=== PATIENT | female | born 1970 | race Caucasian/White ===

== ENCOUNTER → 2017-12-13 | Day surgery (SDC) | payer BC ==
[2017-12-08 09:11] LABS: BASOPHILS # (AUTO) 0.1 (0.0-0.1); BASOPHILS % 1.1 % (0.0-1.0); EOSINOPHILS # (AUTO) 0.3 (0.0-0.4); EOSINOPHILS % 5.2 % (0.0-6.0); HEMATOCRIT 39.9 % (34.2-44.1); HEMOGLOBIN 12.8 g/dL (12.0-16.0); LYMPHOCYTES % 37.2 % (18.0-39.1); MEAN CORPUSCULAR HEMOGLOBIN 30.8 pg (28-32); MEAN CORPUSCULAR HGB CONC 32.1 g/dL (31-35); MEAN CORPUSCULAR VOLUME 95.9 fL (81-99); MONOCYTES # (AUTO) 0.8 (0.2-0.8); NEUTROPHILS # (AUTO) 2.3 (2.1-6.9); NEUTROPHILS % 42.3 % (38.7-80.0); PLATELET COUNT 229 x10e3/uL (140-360); RED BLOOD COUNT 4.16 x10e6/uL (3.6-5.1); RED CELL DISTRIBUTION WIDTH 14.9 % (11.7-14.4)
[2017-12-08 09:15] LABS: INR 0.86; PROTHROMBIN TIME 12.1 seconds (11.9-14.5)
[2017-12-08 09:16] LABS: PARTIAL THROMBOPLASTIN TIME 27.7 seconds (23.8-35.5)
[2017-12-08 09:18] LABS: ALANINE AMINOTRANSFERASE 37 IU/L (0-55); ALBUMIN 4.4 g/dL (3.5-5.0); ALBUMIN/GLOBULIN RATIO 1.1 (0.8-2.0); ALKALINE PHOSPHATASE 59 IU/L (40-150); ANION GAP 15.7 mmol/L (8-16); BLOOD UREA NITROGEN 15 mg/dL (7-26); BUN/CREATININE RATIO 19 (6-25); CALCIUM 10.1 mg/dL (8.4-10.2); CARBON DIOXIDE 25 mmol/L (22-29); CHLORIDE 104 mmol/L (98-107); CREATININE, SERUM 0.78 mg/dL (0.57-1.11); EST GLOMERULAR FILTRATION RATE > 60 ML/MIN (60-); GLUCOSE 91 mg/dL (74-118); POTASSIUM 3.7 mmol/L (3.5-5.1); SODIUM 141 mmol/L (136-145)
[~2017-12-13] MED LIST: BACITRACIN 50,000 UNIT VIAL ONE; BUPIVACAINE 0.25% 30ML SDV INJ ONE; CEFAZOLIN SOD 1 GM VIAL ONE; CHLORHEXIDINE GLUCONATE 4% 120 ML BTL ONE; DEXAMETHASONE SOD PHOS INJ 4 MG/ML VIAL ONE; EPINEPHRINE HCL INJ 1 MG/ML AMP ONE; FAMOTIDINE 20 MG/2 ML VIAL IV ONE; FENTANYL CITRATE/PF 100MCG/2 ML INJ ONE; GLYCOPYRROLATE INJ 1MG/ 5 ML SYR ONE; KLONOPIN0.5 MG PO; LIDOCAINE HCL 1% 30ML-PF VIAL ONE; LIDOCAINE HCL 2% LOCAL INJ 5 ML SDV VIAL INJ ONE; MEPERIDINE HCL INJ 50 MG/ML INJ ONE; METOCLOPRAMIDE HCL 10 MG/2ML VIAL ONE; METOPROLOL TART25 MG PO; MIDAZOLAM HCL 2 MG/2 ML VIAL ONE; NEOSTIGMINE 5 MG/5ML SYR ONE; ONDANSETRON HCL INJ 2 MG/ML VIAL ONE; PROPOFOL IV EMULSION 10 MG/ML 20 ML VIAL ONE; ROCURONIUM BROMIDE 10 MG/ML 5ML VIAL ONE; SEVOFLURANE INHAL SOLN 250 ML PEN BTL ONE
--- NOTE | 2017-12-27 13:40 | Operative Report ---
DATE OF PROCEDURE: December 13, 2017 DATE OF : 1970 PREOPERATIVE DIAGNOSES 1. History of breast cancer. 2. Acquired absence of bilateral breasts. 3. Breast deformity. 4. Hypertrophic scar on lower abdomen. POSTOPERATIVE DIAGNOSES 1. History of breast cancer. 2. Acquired absence of bilateral breasts. 3. Breast deformity. 4. Hypertrophic scar on lower abdomen. PROCEDURES PERFORMED 1. Removal of bilateral old intact silicone gel breast implants. 2. Bilateral breast capsulotomies. 3. Revision of bilateral breast reconstruction. 4. Placement of new silicone gel cohesive breast implant submuscular in reconstruction Natrelle Inspira cohesive implants SCF 415 mL, serial number on right [id number] and serial number on the left [id number]. 5. Fat transfer to bilateral breast, total fat transferred is 66 mL and 33 mL on each side. 6. Excision of hypertrophic scar lower abdomen. 7. Closure of open wound lower abdomen with local advancement flaps, total area 300 cm sq. ANESTHESIA: General endotracheal. INDICATIONS FOR SURGERY: This is a 47-year-old female, who approximately 2 years ago underwent bilateral mastectomies and immediate reconstruction with tissue expanders and AlloDerm. Patient subsequently had exchange of tissue expanders with silicone gel breast implants. Patient is currently presenting complaining of breast asymmetry as well as lower abdominal hypertrophic scar and desires removal of bilateral old silicone gel breast implants, bilateral breast capsulotomies, revision of bilateral breast reconstruction, placement of new larger cohesive silicone gel breast implant submuscular in reconstruction and has selected Natrelle cohesive SCF 415 mL implant. Patient also desires fat transfer to bilateral breast from bilateral outer thighs. She also desires excision of hypertrophic scar lower abdomen and closure of open wound lower abdomen with local advancement flaps. The risks, alternatives, and possible complications of the above procedures were explained to the patient. These include, but are not limited to bleeding, infection, scarring, skin flap necrosis, breast asymmetry, wound dehiscence, failure of fat transfer, firmness, lumpiness, deep venous thrombosis, pulmonary embolism exposure or failure of silicone gel breast implants, wound dehiscence, unsatisfactory aesthetic results, and possible need for further surgery, as well as fat necrosis of transferred fat and skin flap necrosis of lower abdomen. The patient had an opportunity to ask questions and had her questions answered and agreed to proceed with the proposed procedure. PROCEDURE IN DETAIL: The patient was marked in the preoperative holding area by Dr. Colvin. She was then taken to the operating room and placed supine on the operating table. After adequate general anesthesia, the patient's bilateral breasts, abdomen, and bilateral outer thighs were prepped and draped in the usual surgical fashion. Attention was then turned 1st to the patient's bilateral outer thighs, which were the areas of the fat transfer for the bilateral breast. A small incision was made along the patient's lateral flank area through the previous scar and tumescent fluid was injected in each flank area approximately 400 mL. After adequate time was given for the tumescent to act, suction-assisted lipectomy was undertaken with #3 mm cannula. Approximately 200 mL of aspirate were harvested from each outer thigh area. The fat was harvested and then, purified using the Egnyte fat purification system. Approximately 66 mL of purified fat was obtained from both thighs. The donor site on each thigh area was then closed with a single stitch of 5-0 chromic. Attention was then turned to the patient's bilateral breast. An incision was made along the inframammary fold along the previous mastectomy incision with #15 blade. Tissue was dissected down to breast capsule and the old silicone gel implants were removed. The breast pockets were irrigated with normal saline with antibiotic solution. Bilateral medial and superior capsulotomy was then performed with the help of the Bovie, Clayton, and Keaton retractors. The pocket was irrigated with normal saline with antibiotic solution and checked for hemostasis. Revision of bilateral breast reconstruction was then performed by performing bilateral lateral capsulorrhaphies with interrupted 0-Ethibonds sutures. The sutures were placed in interrupted buried fashion along the lateral breast pocket closing breast pocket laterally and on left side also inferiorly in order to achieve breast symmetry and displace the new implants more medially. After the bilateral breast reconstruction, both pockets were again irrigated with normal saline with antibiotic solution and checked for hemostasis and symmetry. The new silicone gel breast implants which were Natrelle Inspira cohesive breast implants SCF 415 mL were then placed in each pocket. The patient was placed in the sitting position and the 2 breasts were checked for symmetry. They appeared to be symmetric. The inframammary incision were then closed with 2 layers of interrupted of 3-0 Vicryl sutures and a running subcuticular 3-0 PDS suture. Fat transfer to the bilateral breast was then performed with a 16-gauge blunt-tipped fat transfer cannula placing fat mostly along the superior border of the bilateral breast as well as the previous port sites on the right upper chest. Again, 33 mL of purified fat were placed on each breast. At the completion of the fat transfer to the bilateral breast, attention was turned to the patient's lower abdomen. Excision of the hypertrophic lower abdominal scar was then performed with #10 blade and with the help of the Bovie. The resulting defect was approximately 300 cm sq. The lower abdominal skin flap was then elevated with the help of the Bovie up to the umbilicus. The patient was then placed in a flexed position and the lower abdominal skin flap was advanced and the 2 skin flaps was sutured to each other with interrupted 2-0 Vicryl sutures in Sydnie's fascia, interrupted 3-0 Vicryl suture in subcutaneous tissue and a running subcuticular 3-0 PDS suture. At the end of the case, the 2 breasts appeared to be symmetric. Steri-Strips were placed along both inframammary incisions. Both breasts were covered with Xeroform and ABD pads. The lower abdominal incision was covered with Xeroform and ABD pads. ABD pads were placed along the lateral thigh incision and a surgical bra and an abdominal girdle was placed on the patient. There were no immediate complications. The needle and instrument count was correct at the end of the case. All skin flaps were viable at the end of the case. Her breast appeared to be symmetric at the end of the case, and she was transferred, extubated to the recovery room. Job#: [id number]
== END | disposition home or self-care (01) ==
LOC: OR 07:03
PROVIDERS: ATTEND Plastic Surgery
DX: N65.0 Deformity of reconstructed breast (principal); Z85.3 Personal history of malignant neoplasm of breast; Z90.13 Acquired absence of bilateral breasts and nipples; L91.0 Hypertrophic scar; I10 Essential (primary) hypertension; I34.1 Nonrheumatic mitral (valve) prolapse; M27.9 Disease of jaws, unspecified; F41.9 Anxiety disorder, unspecified; Z01.810 Encounter for preprocedural cardiovascular examination; Z01.812 Encounter for preprocedural laboratory examination
CPT/HCPCS: 14301; 14302; 15879; 19380; 20926; L8600; 36415; 80053; 85025; 85610; 85730; 93005; J0171; J0690; J1100; J2001; J2175; J2250; J2405; J2765